=== PATIENT | female | born 1935 | race American Indian/Alaskan Native ===

== ENCOUNTER 2017-02-07 20:33 | Emergency (ER) | payer MEDICAID, MEDICARE ==
[2017-02-07 20:38] VITALS: BP 156/84
[2017-02-07] MEDS ORDERED: Bacitracin Oint 1 GM U/D Packet TOP ONE (21:20)
--- NOTE | 2017-02-07 22:08 | EDM.PDOC ---
ED HPI GENERAL MEDICAL PROBLEM - General Chief Complaint: Upper Extremity Injury/Pain Stated Complaint: HAND INJURY Time Seen by Provider: 02/07/17 20:40 Source of Information: Reports: Patient, Family, Group Home Records History Limitations: Reports: No Limitations - History of Present Illness INITIAL COMMENTS - FREE TEXT/NARRATIVE: Patient to ED with family with complaint of pain to Location: Reports: Upper Extremity, Right Quality: Reports: Ache Severity: Mild Associated Symptoms: Reports: No Other Symptoms Right Hand Pain Score (Numeric/FACES): 9 - Related Data Allergies Allergy/AdvReac Type Severity Reaction Status Date / Time lisinopril Allergy Cannot Verified 07/31/16 16:08 Remember Penicillins Allergy Hives Verified 03/10/16 08:56 Home Meds: Home Meds Aspirin [Ecotrin] 81 mg PO DAILY 10/01/14 [History] Losartan [Cozaar] 25 mg PO DAILY 03/10/16 [History] Metoprolol Tartrate 50 mg PO BID 03/10/16 [History] Acetaminophen [Tylenol] 650 mg PO Q6H PRN 08/21/16 [History] Albuterol Sulfate 2.5 mg IH Q4H PRN 08/21/16 [History] Bisacodyl [Dulcolax] 10 mg RC DAILY PRN 08/21/16 [History] Calcium Carbonate/Vitamin D3 [Calcium 600 + Vit D 400 Tablet] 1 each PO BID [History] Furosemide 20 mg PO DAILY 08/21/16 [History] Gabapentin [Neurontin] 200 mg PO BEDTIME 08/21/16 [History] Glimepiride 0.5 mg PO WITHBREAKFAST 08/21/16 [History] Iron Polysaccharide Complex [Nu-Iron 150] 27 mg PO DAILY 08/21/16 [History] Magnesium Hydroxide [Milk of Magnesia] 10 ml PO ASDIRECTED PRN 08/21/16 [History ] Na Phos,M-B/Na Phos,Di-Ba [Fleet Enema] 133 ml RC ASDIRECTED PRN 08/21/16 [ History] Ranitidine [Zantac] 150 mg PO DAILY 08/21/16 [History] Sennosides/Docusate Sodium [Senna S Tablet] 1 each PO BID PRN 08/21/16 [History] Sertraline [Zoloft] 100 mg PO BEDTIME 08/21/16 [History] Past Medical History HEENT History: Reports: Impaired Vision Other HEENT History: wears corrective lenses Cardiovascular History: Reports: Hypertension Respiratory History: Reports: COPD Gastrointestinal History: Reports: GERD Genitourinary History: Reports: Other (See Below) Other Genitourinary History: something done with bladder 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 arm fx. Psychiatric History: Reports: Depression Endocrine/Metabolic History: Reports: Diabetes, Type I Hematologic History: Reports: Anemia, Blood Transfusion(s), Iron Deficiency Immunologic History: Reports: None Oncologic (Cancer) History: Reports: None Other Oncologic History: Could not recall Dermatologic History: Reports: None - Infectious Disease History Infectious Disease History: Reports: Chicken Pox, Measles, Mumps - Past Surgical History Female Surgical History: Reports: Hysterectomy Other Musculoskeletal Surgeries/Procedures:: broken arm, had surgery Social & Family History - Family History Family Medical History: Noncontributory HEENT: Reports: Cataract Cardiac: Reports: Afib, CAD, Heart Failure, High Cholesterol, Hypertension, [place] Respiratory: Reports: Asthma, COPD GI: Reports: Bowel Obstruction, Cholelithiasis : Reports: Dialysis, Renal Disease/Insufficiency Musculoskeletal: Reports: Arthritis Neurological: Reports: CVA Psychiatric: Reports: Anxiety, Depression Endocrine/Metabolic: Reports: Diabetes, type II, Obesity/MBI 30+ Dermatologic: Reports: None Oncologic: Reports: Lung, Uterine - Tobacco Use Smoking Status *Q: Current Every Day Smoker Years of Tobacco use: 50 Packs/Tins Daily: 0.2 Used Tobacco, but Quit: No Second Hand Smoke Exposure: No - Caffeine Use Caffeine Use: Reports: Coffee - Alcohol Use Days Per Week of Alcohol Use: 0 - Recreational Drug Use Recreational Drug Use: No - Living Situation & Occupation Living situation: Reports: , with Family Occupation: Retired Review of Systems - Review of Systems Review Of Systems: ROS reveals no pertinent complaints other than HPI. ED EXAM, GENERAL - Physical Exam Exam: See Below Exam Limited By: No Limitations General Appearance: Alert, Mild Distress (with movment of hand) Ears: Normal External Exam Nose: Normal Inspection Throat/Mouth: Normal Inspection Head: Atraumatic, Normocephalic Neck: Full Range of Motion Respiratory/Chest: No Respiratory Distress, Lungs Clear Cardiovascular: Regular Rate, Rhythm Back Exam: Full Range of Motion. No: Paraspinal Tenderness, Vertebral Tenderness Extremities: Joint Swelling, Other (painful swollen right proximal 5th finger, purple echymosis). No: Normal Inspection, Normal Range of Motion Neurological: Alert, Confused (baseline), Memory Loss Recent Events Psychiatric: Normal Affect Skin Exam: Warm, Dry, Other (1.5cm laceration right distal palm, clean dry Intact with adhesive placed by NH, skintear 5th medial MIIP No active bleeding. ) Course - Vital Signs Last Recorded V/S: Last Vital Signs Temp 97.3 F 02/07/17 20:34 Pulse 76 02/07/17 20:34 Resp 18 02/07/17 20:34 BP 156/84 H 02/07/17 20:34 Pulse Ox 97 02/07/17 20:34 - Orders/Labs/Meds Meds: Medications Discontinued Medications Generic Name Dose Route Start Last Admin Trade Name Freq PRN Reason Stop Dose Admin Bacitracin 1 dose 02/07/17 21:20 02/07/17 21:31 Bacitracin Oint 1 Gm TOP 02/07/17 21:21 1 dose ONETIME ONE Administration - Radiology Interpretation Free Text/Narrative:: TC consult [facility] ortho Dr Lindo as fx with nearby open skin. Recommendation for jeanette tpae and follow with ortho in one -2 weeks. No antibiotic required at this time. Departure - Departure Time of Disposition: 22:02 Disposition: DC/[facility]fer to [facility] Condition: Good Clinical Impression: Fracture of metacarpal bone Qualifiers: Encounter type: initial encounter Metacarpal bone: fifth Fracture type: open Metacarpal location: base Fracture alignment: displaced Laterality: right Qualified Code(s): S62.316B - Displaced fracture of base of fifth metacarpal bone, right hand, initial encounter for open fracture - Discharge Information Instructions: Metacarpal Fracture, [id number] Referrals: PCP,Unobtain [Primary Care Provider] - Forms: ED Department Discharge Additional Instructions: Jeanette tape 5th finger to 4th change dressing twice daily and as needed metacarpal splint if tolerated elevate monitor wounds for signs of infection call to schedule ortho follow up for one week ([facility])
== END 2017-02-07 22:13 ==
LOC: DL.ED 20:33
DX: S62.316B Displaced fracture of base of fifth metacarpal bone, right hand, initial encounter for open fracture (principal); H54.7 Unspecified visual loss; I10 Essential (primary) hypertension; J44.9 Chronic obstructive pulmonary disease, unspecified; K21.9 Gastro-esophageal reflux disease without esophagitis; F32.9 Major depressive disorder, single episode, unspecified; E10.9 Type 1 diabetes mellitus without complications; D64.9 Anemia, unspecified; E66.9 Obesity, unspecified; F17.210 Nicotine dependence, cigarettes, uncomplicated; Z79.82 Long term (current) use of aspirin; Z79.899 Other long term (current) drug therapy; Z88.0 Allergy status to penicillin; Z90.710 Acquired absence of both cervix and uterus; Z88.8 Allergy status to other drugs, medicaments and biological substances; X58.XXXA Exposure to other specified factors, initial encounter; Z68.31 Body mass index [BMI] 31.0-31.9, adult
CPT/HCPCS: 73130-RT; 99283

== ENCOUNTER 2017-05-28 16:07 | Emergency (ER) | payer MEDICARE, MEDICAID ==
[2017-05-28 16:19] VITALS: BP 136/81
[2017-05-28] MEDS ORDERED: Acetaminophen/HYDROcodone 325-10 MG Tab PO ONE ×2 (16:19→20:10)
--- NOTE | 2017-05-28 16:22 | EDM.PDOC ---
ED HPI GENERAL MEDICAL PROBLEM - General Chief Complaint: General Stated Complaint: CAME FROM GROUP HOME Time Seen by Provider: 05/28/17 16:17 Source of Information: Reports: Patient, Retirement Records History Limitations: Reports: No Limitations - History of Present Illness INITIAL COMMENTS - FREE TEXT/NARRATIVE: 82 yo white female w/ advanced dementia fell at NH w/o LOC w/ right eye bruise and right elbow deformity Onset: Today Onset Date: 05/28/17 Onset Time: 15:00 Duration: Hour(s): Location: Reports: Face (right side), Upper Extremity, Right (right elbow) Quality: Reports: Ache Severity: Moderate Improves with: Reports: None Worsens with: Reports: None Context: Reports: Trauma Associated Symptoms: Reports: No Other Symptoms - Related Data Allergies Allergy/AdvReac Type Severity Reaction Status Date / Time lisinopril Allergy Cannot Verified 07/31/16 16:08 Remember Penicillins Allergy Hives Verified 03/10/16 08:56 strawberry Allergy Cannot Verified 05/28/17 16:23 Remember Home Meds: Home Meds Aspirin [Ecotrin] 81 mg PO DAILY 10/01/14 [History] Losartan [Cozaar] 25 mg PO DAILY 03/10/16 [History] Metoprolol Tartrate 50 mg PO BID 03/10/16 [History] Acetaminophen [Tylenol] 650 mg PO Q6H PRN 08/21/16 [History] Albuterol Sulfate 2.5 mg IH Q4H PRN 08/21/16 [History] Bisacodyl [Dulcolax] 10 mg RC DAILY PRN 08/21/16 [History] Calcium Carbonate/Vitamin D3 [Calcium 600 + Vit D 400 Tablet] 1 each PO BID [History] Furosemide 20 mg PO DAILY 08/21/16 [History] Gabapentin [Neurontin] 200 mg PO BEDTIME 08/21/16 [History] Glimepiride 0.5 mg PO WITHBREAKFAST 08/21/16 [History] Iron Polysaccharide Complex [Nu-Iron 150] 27 mg PO DAILY 08/21/16 [History] Magnesium Hydroxide [Milk of Magnesia] 10 ml PO ASDIRECTED PRN 08/21/16 [History ] Na Phos,M-B/Na Phos,Di-Ba [Fleet Enema] 133 ml RC ASDIRECTED PRN 08/21/16 [ History] Ranitidine [Zantac] 150 mg PO DAILY 08/21/16 [History] Sennosides/Docusate Sodium [Senna S Tablet] 1 each PO BID PRN 08/21/16 [History] Sertraline [Zoloft] 100 mg PO BEDTIME 08/21/16 [History] Past Medical History HEENT History: Reports: Impaired Vision Other HEENT History: wears corrective lenses Cardiovascular History: Reports: Hypertension Respiratory History: Reports: COPD Gastrointestinal History: Reports: GERD Genitourinary History: Reports: Other (See Below) Other Genitourinary History: something done with bladder 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 arm fx. Psychiatric History: Reports: Depression Endocrine/Metabolic History: Reports: Diabetes, Type I Hematologic History: Reports: Anemia, Blood Transfusion(s), Iron Deficiency Immunologic History: Reports: None Oncologic (Cancer) History: Reports: None Other Oncologic History: Could not recall Dermatologic History: Reports: None - Infectious Disease History Infectious Disease History: Reports: Chicken Pox, Measles, Mumps - Past Surgical History Female Surgical History: Reports: Hysterectomy Other Musculoskeletal Surgeries/Procedures:: broken arm, had surgery Social & Family History - Family History Family Medical History: Noncontributory HEENT: Reports: Cataract Cardiac: Reports: Afib, CAD, Heart Failure, High Cholesterol, Hypertension, [place] Respiratory: Reports: Asthma, COPD GI: Reports: Bowel Obstruction, Cholelithiasis : Reports: Dialysis, Renal Disease/Insufficiency Musculoskeletal: Reports: Arthritis Neurological: Reports: CVA Psychiatric: Reports: Anxiety, Depression Endocrine/Metabolic: Reports: Diabetes, type II, Obesity/MBI 30+ Dermatologic: Reports: None Oncologic: Reports: Lung, Uterine - Tobacco Use Smoking Status *Q: Current Every Day Smoker Years of Tobacco use: 50 Packs/Tins Daily: 0.2 Used Tobacco, but Quit: No Second Hand Smoke Exposure: No - Caffeine Use Caffeine Use: Reports: Coffee - Alcohol Use Days Per Week of Alcohol Use: 0 - Recreational Drug Use Recreational Drug Use: No - Living Situation & Occupation Living situation: Reports: , with Family Occupation: Retired ED ROS GENERAL - Review of Systems Review Of Systems: See Below Constitutional: Reports: No Symptoms HEENT: Reports: No Symptoms Respiratory: Reports: No Symptoms Cardiovascular: Reports: No Symptoms Endocrine: Reports: No Symptoms GI/Abdominal: Reports: No Symptoms : Reports: No Symptoms Musculoskeletal: Reports: Joint Pain (right elbow) Skin: Reports: Bruising (right eye skin w/ abrasion) Neurological: Reports: No Symptoms Psychiatric: Reports: No Symptoms Hematologic/Lymphatic: Reports: No Symptoms Immunologic: Reports: No Symptoms ED EXAM, GENERAL - Physical Exam Exam: See Below Exam Limited By: Altered Mental Status General Appearance: Alert, No Apparent Distress Eye Exam: Bilateral Eye: EOMI, PERRL Ears: Normal External Exam Nose: Normal Inspection Throat/Mouth: Normal Inspection Head: Atraumatic, Other (right andrés-orbital skin ) Neck: Normal Inspection, Supple Respiratory/Chest: No Respiratory Distress, Lungs Clear Cardiovascular: Normal Peripheral Pulses, Regular Rate, Rhythm Peripheral Pulses: 2+: Radial (L), Radial (R) GI/Abdominal: Normal Bowel Sounds, Soft Back Exam: Normal Inspection Extremities: Normal Inspection Neurological: Alert Psychiatric: Normal Affect Skin Exam: Warm, Erythema (skin abrasion beneath right eye) Lymphatic: No Adenopathy ED GENERAL MEDICAL PROCEDURES - Splinting Right Upper Extremity Splint Site: right upper extremity ( elbow) Pre-procedure NV status: Normal Post-procedure NV status: Normal Splint Material: Fiberglass Splint Design: Gutter Applied & Form Fitted By: Provider, Nurse, Tech Provider Post-Splint Application NV Check: NV Status Normal, Good Position Complications: No Course - Vital Signs Text/Narrative:: CT face: Mild displaced fx. of the right inferior orbital wall w/ 3mm inferior displacement with small amount of intraorbital emphysema in the right inferior orbit. Also, small air-fluid level in the right maxillary sinus w/ patchy opacification in the right ethmoids, representing hemorrhage CT elbow: Mildly displaced transverse supracondylar fx. if distal right humerus PCP Dr. Reese advise 1) Splint right elbow 2) Give to Guardian advise from [facility] Last Recorded V/S: Last Vital Signs Temp 36.2 C 05/28/17 16:18 Pulse 84 05/28/17 16:18 Resp 20 05/28/17 16:18 BP 136/81 05/28/17 16:18 Pulse Ox 96 05/28/17 16:18 - Orders/Labs/Meds Orders: Active Orders 24 hr Category Date Time Status Cervical Spine wo Cont [CT] Urgent Exams 05/28/17 18:27 Ordered Head wo Cont [CT] Urgent Exams 05/28/17 18:27 Ordered Labs: Laboratory Tests 05/28/17 05/28/17 Range/Units 16:48 16:48 WBC 8.7 (5.0-10.0) 10^3/uL RBC 4.25 (4.2-5.4) 10^6/uL Hgb 12.1 (12.0-16.0) g/dL Hct 36.7 L (37.0-47.0) % MCV 86.4 D (80-100) fL MCH 28.5 (27.0-34.0) pg MCHC 33.0 (33.0-35.0) g/dL Plt Count 154 (150-450) 10^3/uL Neut % (Auto) 77.1 H (42.2-75.2) % Lymph % (Auto) 12.2 L (20.5-50.1) % [place] % (Auto) 8.8 H (2-8) % Eos % (Auto) 1.4 (1.0-3.0) % Baso % (Auto) 0.5 (0.0-1.0) % Sodium 138 (138-146) mmol/L Potassium 4.1 (3.5-4.9) mmol/L Chloride 102 (98-109) mmol/L Carbon Dioxide 25 (24-29) mmol/L Anion Gap 15.1 BUN 17 (8-26) mg/dL Creatinine 1.1 (0.6-1.3) mg/dL Est Cr Clr Drug Dosing TNP Estimated GFR (MDRD) 48 Glucose 161 H (70-105) mg/dL Calcium Meds: Medications Discontinued Medications Generic Name Dose Route Start Last Admin Trade Name Freq PRN Reason Stop Dose Admin Hydrocodone Bitart/Acetaminophen 1 tab 05/28/17 16:19 05/28/17 17:04 [place] 325-10 Mg PO 05/28/17 16:20 1 tab ONETIME ONE Administration Departure - Departure Time of Disposition: 18:57 Disposition: Home, Self-Care 01 Condition: Fair Clinical Impression: Humerus distal fracture Qualifiers: Encounter type: initial encounter Fracture type: closed Fracture morphology: unspecified fracture morphology Laterality: right Qualified Code(s): S42.401A - Unspecified fracture of lower end of right humerus, initial encounter for closed fracture Fracture of orbital floor, right side, initial encounter for closed fracture Qualifiers: Encounter type: initial encounter Qualified Code(s): S02.31XA - Fracture of orbital floor, right side, initial encounter for closed fracture - Discharge Information Forms: ED Department Discharge Additional Instructions: Rest Keep Splint in place X 2 weeks F/U w/ Orthopedics @ [facility] : DR. QUINTANILLA [phone] F/U w/ [facility]: Dr. Nikhil Cruz: ( Advise appt. for 2016) @ [phone] For Pain: TRAMADOL 50mg TID # 30 - My Orders Last 24 Hours: My Active Orders 05/28/17 18:27 Cervical Spine wo Cont [CT] Urgent Head wo Cont [CT] Urgent - Assessment/Plan Last 24 Hours: My Active Orders 05/28/17 18:27 Cervical Spine wo Cont [CT] Urgent Head wo Cont [CT] Urgent
[2017-05-28 17:16] LABS: SODIUM,NA 138 mmol/L (138-146)
[2017-05-28 17:17] LABS: CHLORIDE,CL 102 mmol/L (98-109)
== END 2017-05-28 20:20 | disposition home or self-care (01) ==
LOC: DL.ED 16:07
DX: S42.411A Displaced simple supracondylar fracture without intercondylar fracture of right humerus, initial encounter for closed fracture (principal); S02.31XA Fracture of orbital floor, right side, initial encounter for closed fracture; I10 Essential (primary) hypertension; J44.9 Chronic obstructive pulmonary disease, unspecified; E10.9 Type 1 diabetes mellitus without complications; F17.210 Nicotine dependence, cigarettes, uncomplicated; Z79.82 Long term (current) use of aspirin; Z79.899 Other long term (current) drug therapy; Z88.0 Allergy status to penicillin; Z88.8 Allergy status to other drugs, medicaments and biological substances; Z91.018 Allergy to other foods; W19.XXXA Unspecified fall, initial encounter
CPT/HCPCS: 29105; 36415; 70450; 70486; 72125; 73200; 80048; 85025; 99283; 99284; A9270